=== PATIENT | male | born 1930 | race Caucasian/White ===

== ENCOUNTER → 2016-05-13 | Outpatient (CLI) | payer BC ==
[~2016-05-13] MED LIST: ASPI81TA28 PO; ATOR-26 PO; ISOS60TA25 PO; METO50TA16 PO; NTRGSL/4 UT; PANT40TA PO; TAMS0.4C38 PO; ZNTT/150 PO
[2016-05-13 12:21] LABS: ALT/SGPT 27 U/L (12-78); BLOOD UREA NITROGEN 18 mg/dl (7-18); BUN/CREATININE RATIO 15.2 (10-20); CALCIUM 9.1 mg/dl (8.5-10.1); CARBON DIOXIDE 26 mmol/L (21-32); CHLORIDE 108 mmol/L (98-107); CHOLESTEROL 115 mg/dl (0-200); GLUCOSE 128 mg/dl (70-99); POTASSIUM 4.2 mmol/L (3.5-5.1); SODIUM 142 mmol/L (136-145); TRIGLYCERIDES 131 mg/dl (0-150); VERY LOW DENSITY LIPOPROT CALC 26 mg/dl
[2016-05-13 12:22] LABS: ESTIMATED AVERAGE GLUCOSE 143 mg/dl; HA1C FLAG Normal (Normal)
[2016-05-13 12:24] LABS: ALB/GLOB RATIO 1.3 (0.9-2); ALKALINE PHOSPHATASE 131 U/L (45-117); AST/SGOT 17 U/L (15-37); CHOLESTEROL/HDL RATIO 3.6; HDL CHOLESTEROL 32 mg/dl; LDL CHOLESTEROL CALCULATED 57 mg/dl
== END | disposition home or self-care (01) ==
LOC: C.LABPVFM 09:13
PROVIDERS: ATTEND Family Medicine
DX: E78.5 Hyperlipidemia, unspecified (principal); E11.9 Type 2 diabetes mellitus without complications; K29.70 Gastritis, unspecified, without bleeding

== ENCOUNTER → 2016-05-17 | Outpatient (CLI) | payer BC | END | disposition home or self-care (01) | LOC: C.LABPVFM 14:45 | PROVIDERS: ATTEND Family Medicine | DX: R10.9 Unspecified abdominal pain (principal) ==

== ENCOUNTER → 2016-05-17 | Outpatient (CLI) | payer BC ==
--- NOTE | 2016-05-17 15:22 | DIAGNOSTIC IMAGING REPORT ---
LEFT HIP UNILATERAL 2 VIEWS CLINICAL HISTORY: Left hip pain COMPARISON STUDY: Abdomen and pelvis CT 09/15/2013. FINDINGS: The bones are osteopenic. Mild left hip osteoarthritis. No acute fracture or dislocation within the left hip. The visualized pelvic bones are intact. IMPRESSION: No fracture or dislocation within the left hip. Electronically signed by: Blade Johnson M.D. 05/17/2016 3:21 PM Dictated Date/Time: 05/17/2016 3:18 PM
== END | disposition home or self-care (01) ==
LOC: C.RADPV 14:59
PROVIDERS: ATTEND Family Medicine
DX: M25.552 Pain in left hip (principal); R10.9 Unspecified abdominal pain

== ENCOUNTER → 2016-11-17 | Outpatient (CLI) | payer BC ==
[2016-11-17 13:05] LABS: ALT/SGPT 23 U/L (12-78); AST/SGOT 24 U/L (15-37); BLOOD UREA NITROGEN 26 mg/dl (7-18); BUN/CREATININE RATIO 18.2 (10-20); CALCIUM 9.7 mg/dl (8.5-10.1); CARBON DIOXIDE 24 mmol/L (21-32); CHLORIDE 107 mmol/L (98-107); CHOLESTEROL 108 mg/dl (0-200); GLUCOSE 134 mg/dl (70-99); POTASSIUM 4.1 mmol/L (3.5-5.1); SODIUM 139 mmol/L (136-145)
[2016-11-17 13:09] LABS: ALB/GLOB RATIO 1.4 (0.9-2); ALKALINE PHOSPHATASE 144 U/L (45-117); CHOLESTEROL/HDL RATIO 3.4; HDL CHOLESTEROL 32 mg/dl; LDL CHOLESTEROL CALCULATED 56 mg/dl; TRIGLYCERIDES 101 mg/dl (0-150); VERY LOW DENSITY LIPOPROT CALC 20 mg/dl
== END | disposition home or self-care (01) ==
LOC: C.LABPVFM 08:22
PROVIDERS: ATTEND Family Medicine
DX: I25.10 Atherosclerotic heart disease of native coronary artery without angina pectoris (principal); E78.5 Hyperlipidemia, unspecified; E11.9 Type 2 diabetes mellitus without complications; K21.9 Gastro-esophageal reflux disease without esophagitis; H10.9 Unspecified conjunctivitis

== ENCOUNTER → 2017-02-23 | Outpatient (CLI) | payer BC ==
[2017-02-23 12:57] LABS: ALBUMIN 3.6 gm/dl (3.4-5.0); ALT/SGPT 28 U/L (12-78); AST/SGOT 22 U/L (15-37); BLOOD UREA NITROGEN 20 mg/dl (7-18); CARBON DIOXIDE 27 mmol/L (21-32); CREATININE 1.23 mg/dl (0.60-1.40); GLUCOSE 119 mg/dl (70-99); POTASSIUM 4.3 mmol/L (3.5-5.1); SODIUM 140 mmol/L (136-145)
[2017-02-23 13:00] LABS: ALKALINE PHOSPHATASE 119 U/L (45-117); TOTAL PROTEIN 6.4 gm/dl (6.4-8.2)
[2017-02-23 13:06] LABS: HEMOGLOBIN A1C 6.4 % (4.5-5.6)
== END | disposition home or self-care (01) ==
LOC: C.LABPVFM 09:55
PROVIDERS: ATTEND Family Medicine
DX: I25.10 Atherosclerotic heart disease of native coronary artery without angina pectoris (principal); E78.5 Hyperlipidemia, unspecified; E11.9 Type 2 diabetes mellitus without complications; K21.9 Gastro-esophageal reflux disease without esophagitis; R17 Unspecified jaundice